=== PATIENT | male | born 1995 | race Caucasian/White ===

== ENCOUNTER 2021-04-23 15:37 | Emergency (ER) | payer OTHER ==
[~2021-04-23] VITALS: Ht 182.9 cm; Wt 117.9 kg
[2021-04-23] MEDS ORDERED: SODIUM CHLORIDE 0.9% 1,000 ML IV ONE (16:30)
[2021-04-23] MEDS ORDERED: ACETAMINOPHEN 500 MG TAB PO ONE (16:30)
[2021-04-23 17:04] LABS: Basophils # (auto) 0.1 10 ^3/uL (0-0.2); Basophils % (auto) 0.5 % (0.0-2.0); Eosinophils # (auto) 0.3 10 ^3/uL (0-0.8); Eosinophils % (auto) 2.1 % (0.0-7.0); Hematocrit 44.9 % (41.0-53.0); Hemoglobin 15.5 g/dL (13.5-17.5); Lymphocytes % (auto) 8.3 % (10.0-50.0); Mean Corpuscular Hemoglobin 29.7 pg (28.0-32.0); Mean Corpuscular Hgb Conc. 34.4 g/dL (32.0-36.0); Mean Corpuscular Volume 86.3 fL (80.0-100.0); Monocytes # (auto) 0.6 10 ^3/uL (0-1.3); Monocytes % (auto) 5.2 % (0.0-12.0); Neutrophils # (auto) 10.4 10 ^3/uL (1.6-8.6); Neutrophils % (auto) 83.9 % (37.0-80.0); Nucleated Red Blood Cells % 0.1 %; Red Cell Distribution Width 13.6 % (11.8-14.3); White Blood Cell 12.4 10^3/uL (4.4-10.8)
[2021-04-23 17:22] LABS: Albumin 3.7 g/dL (3.4-5.0); Calcium 8.6 mg/dL (8.5-10.1); Potassium 3.5 mmol/L (3.5-5.1)
[2021-04-23 17:28] LABS: Urine Bacteria NONE SEEN /hpf (None Seen); Urine Blood Negative /uL (Negative); Urine Mucus FEW (None Seen); Urine Specific Gravity 1.007 (1.001-1.035); Urine WBC <1 /hpf (0 - 3)
[2021-04-23 17:29] LABS: BUN/Creatinine Ratio 13.9; Bilirubin, Total 0.4 mg/dL (0.2-1.0); Total Protein 7.4 g/dL (6.4-8.2)
[2021-04-23] MEDS ORDERED: ALBUTEROL SULF 2.5 MG/0.5ML(0.5%) NEB SOLN NEB ONE (18:45)
[2021-04-23] MEDS ORDERED: methylPREDNISolone SOD SUCC 125 MG/2 ML VL IV ONE (18:45)
[2021-04-23] MEDS ORDERED: IPRATROPIUM BROM 0.5 MG/2.5ML INH SOL NEB ONE (18:45)
[2021-04-23] MEDS ORDERED: PRED20TA2 PO (21:43)
[2021-04-23] MEDS ORDERED: AZIT250T9 PO (21:43)
[2021-04-23] MEDS ORDERED: ALBUAER3 IN (21:43)
[2021-04-23 22:00] VITALS: BP 122/62
== END 2021-04-23 23:25 | disposition home or self-care (01) ==
LOC: ER 15:37
DX: J45.901 Unspecified asthma with (acute) exacerbation (principal); J20.9 Acute bronchitis, unspecified; F17.210 Nicotine dependence, cigarettes, uncomplicated; Z20.822 Contact with and (suspected) exposure to COVID-19
CPT/HCPCS: 36415; 71045; 80053; 81001; 83605; 83880; 84484; 85025; 87040; 87086; 87426; 93005; 94640; 96361; 96374; 99285; J2930; J7030; J7644

== ENCOUNTER 2021-04-24 02:57 | Inpatient (IN) | payer OTHER ==
[~2021-04-24] VITALS: Ht 182.9 cm; Wt 115.7 kg
[~2021-04-24 02:57] MED LIST: ALBUAER3 IN; AZIT250T9 PO; PRED20TA2 PO
[2021-04-24] MEDS ORDERED: ALBUTEROL SULF 2.5 MG/0.5ML(0.5%) NEB SOLN NEB ONE (03:15)
[2021-04-24] MEDS ORDERED: predniSONE 20 MG TAB PO ONE (03:15)
[2021-04-24] MEDS ORDERED: IPRATROPIUM BROM 0.5 MG/2.5ML INH SOL NEB ONE (03:15)
[2021-04-24 03:47] LABS: Basophils # (auto) 0 10 ^3/uL (0-0.2); Basophils % (auto) 0.2 % (0.0-2.0); Eosinophils # (auto) 0 10 ^3/uL (0-0.8); Hematocrit 46.2 % (41.0-53.0); Hemoglobin 15.8 g/dL (13.5-17.5); Lymphocytes # (auto) 0.6 10 ^3/uL (0.4-5.4); Lymphocytes % (auto) 4.1 % (10.0-50.0); Mean Corpuscular Hemoglobin 29.5 pg (28.0-32.0); Mean Corpuscular Hgb Conc. 34.3 g/dL (32.0-36.0); Monocytes # (auto) 0.2 10 ^3/uL (0-1.3); Monocytes % (auto) 1.2 % (0.0-12.0); Neutrophils # (auto) 13.6 10 ^3/uL (1.6-8.6); Neutrophils % (auto) 94.5 % (37.0-80.0); Red Blood Cells 5.38 10^6/uL (4.5-5.90); Red Cell Distribution Width 13.5 % (11.8-14.3); White Blood Cell 14.3 10^3/uL (4.4-10.8)
[2021-04-24 04:06] LABS: Albumin 3.8 g/dL (3.4-5.0); BUN/Creatinine Ratio 10.4; Calcium 9.1 mg/dL (8.5-10.1); Potassium 3.8 mmol/L (3.5-5.1)
[2021-04-24 04:13] LABS: Bilirubin, Total 0.4 mg/dL (0.2-1.0); Total Protein 8.2 g/dL (6.4-8.2)
[2021-04-24] MEDS ORDERED: cefTRIAXone SOD 1,000 MG VL IV ONE (05:00)
[2021-04-24] MEDS ORDERED: AZITHROMYCIN 250 MG TAB PO ONE ×2 (05:00→11:15)
[2021-04-24] MEDS ORDERED: IOHEXOL 350 MG/ML 100ML IJ ONE (05:06)
[2021-04-24] MEDS ORDERED: ONDANSETRON HCL 4 MG/2 ML VIAL IV PRN (06:45)
[2021-04-24] MEDS ORDERED: methylPREDNISolone SOD SUCC 125 MG/2 ML VL IV ONE (06:45)
[2021-04-24] MEDS ORDERED: IPRATROPIUM BROM 0.5 MG/2.5ML INH SOL NEB PRN (06:45)
[2021-04-24] MEDS ORDERED: FAMOTIDINE INJECTION 40 MG in SODIUM CHL 0.9% 100 ML IV ONE (06:45)
[2021-04-24] MEDS ORDERED: LORATADINE 10 MG TAB PO ONE (06:45)
[2021-04-24] MEDS ORDERED: MONTELUKAST SODIUM 10 MG TAB PO ONE (06:45)
[2021-04-24] MEDS ORDERED: ACETAMINOPHEN 325 MG TAB PO PRN (06:45)
[2021-04-24] MEDS ORDERED: ALBUTEROL SULF 2.5 MG/0.5ML(0.5%) NEB SOLN NEB PRN (06:45)
[2021-04-24 07:09] LABS: Amphetamine Screen, Urine NEGATIVE (NEGATIVE); Barbiturate Scree,Urine NEGATIVE (NEGATIVE); Benzodiazephine Screen, Urine NEGATIVE (NEGATIVE); Cannabinoid Screen, Urine NEGATIVE (NEGATIVE); Cocaine Screen, Urine NEGATIVE (NEGATIVE); Opiate Scree,Urine NEGATIVE (NEGATIVE); Phencyclidine Screen, Urine NEGATIVE (NEGATIVE)
[2021-04-24] MEDS ORDERED: SODIUM CHLORIDE 0.9% 1,000 ML IV ONE (07:15)
[2021-04-24] MEDS: MAGNESIUM SULFATE 1GM/100ML 100 ML IV SCH ×2 (07:38→08:27)
[2021-04-24] MEDS: SODIUM CHLORIDE 0.9% 1,000 ML IV SCH ×2 (07:38→15:08)
[2021-04-24 09:40] VITALS: BP 126/73
[2021-04-24 10:15] VITALS: BP 126/73
[2021-04-24] MEDS ORDERED: cefTRIAXone 1GM/50ML D5W 50 ML IV ONE (11:15)
[2021-04-24] MEDS: IPRATROPIUM BROM 0.5 MG/2.5ML INH SOL NEB SCH ×3 (11:57→23:51)
[2021-04-24] MEDS: ALBUTEROL SULF 2.5 MG/0.5ML(0.5%) NEB SOLN NEB SCH ×3 (11:58→23:51)
[2021-04-24] MEDS: LORATADINE 10 MG TAB PO SCH (12:21)
[2021-04-24] MEDS: ENOXAPARIN SOD 40 MG/0.4 ML SYRINGE SC SCH (12:21)
[2021-04-24] MEDS: methylPREDNISolone SOD SUCC 125 MG/2 ML VL IV SCH ×2 (14:57→20:58)
[2021-04-24 17:00] VITALS: BP 130/77
[2021-04-24 22:00] VITALS: BP 95/75
[2021-04-25] MEDS: SODIUM CHLORIDE 0.9% 1,000 ML IV SCH ×2 (02:29→07:45)
[2021-04-25] MEDS: methylPREDNISolone SOD SUCC 125 MG/2 ML VL IV SCH (05:10)
[2021-04-25 05:12] VITALS: BP 112/70
[2021-04-25 06:33] LABS: Basophils # (auto) 0 10 ^3/uL (0-0.2); Basophils % (auto) 0.1 % (0.0-2.0); Eosinophils # (auto) 0 10 ^3/uL (0-0.8); Hematocrit 40.3 % (41.0-53.0); Hemoglobin 13.8 g/dL (13.5-17.5); Lymphocytes % (auto) 6.6 % (10.0-50.0); Mean Corpuscular Hemoglobin 30.1 pg (28.0-32.0); Mean Corpuscular Hgb Conc. 34.3 g/dL (32.0-36.0); Mean Corpuscular Volume 87.8 fL (80.0-100.0); Monocytes # (auto) 0.5 10 ^3/uL (0-1.3); Monocytes % (auto) 3.6 % (0.0-12.0); Neutrophils # (auto) 13.9 10 ^3/uL (1.6-8.6); Neutrophils % (auto) 89.7 % (37.0-80.0); Nucleated Red Blood Cells % 0.1 %; Red Blood Cells 4.59 10^6/uL (4.5-5.90); Red Cell Distribution Width 13.9 % (11.8-14.3); White Blood Cell 15.5 10^3/uL (4.4-10.8)
[2021-04-25] MEDS: IPRATROPIUM BROM 0.5 MG/2.5ML INH SOL NEB SCH (06:48)
[2021-04-25] MEDS: ALBUTEROL SULF 2.5 MG/0.5ML(0.5%) NEB SOLN NEB SCH (06:48)
[2021-04-25 06:50] LABS: Albumin 3.1 g/dL (3.4-5.0); Calcium 8.6 mg/dL (8.5-10.1); Potassium 4.6 mmol/L (3.5-5.1)
[2021-04-25 06:53] LABS: BUN/Creatinine Ratio 16.7; Bilirubin, Total 0.2 mg/dL (0.2-1.0); Total Protein 6.9 g/dL (6.4-8.2)
[2021-04-25 08:00] VITALS: BP 121/76
[2021-04-25] MEDS ORDERED: ALBUAER3 IN (08:29)
[2021-04-25] MEDS ORDERED: METH4PAK PO (08:29)
[2021-04-25] MEDS ORDERED: AZIT500T66 PO (08:29)
[2021-04-25] MEDS ORDERED: cefTRIAXone 1GM/50ML D5W 50 ML IV SCH (09:00)
[2021-04-25] MEDS: LORATADINE 10 MG TAB PO SCH (09:30)
[2021-04-25] MEDS ORDERED: FAMOTIDINE 20 MG TAB PO SCH (10:00)
[2021-04-25] MEDS ORDERED: AZITHROMYCIN 250 MG TAB PO SCH (10:00)
[2021-04-25] MEDS: ENOXAPARIN SOD 40 MG/0.4 ML SYRINGE SC SCH (10:00)
[2021-04-25] MEDS ORDERED: MONTELUKAST SODIUM 10 MG TAB PO SCH (22:00)
== END 2021-04-25 13:00 | disposition home or self-care (01) | DRG 193 ==
LOC: ER 02:57 → TELE 06:39 → TELE-CENTR 09:12
PROVIDERS: ADMIT Internal Medicine; ATTEND Family Medicine
DX: J18.9 Pneumonia, unspecified organism (principal); J96.01 Acute respiratory failure with hypoxia; J45.901 Unspecified asthma with (acute) exacerbation; E66.9 Obesity, unspecified; F17.210 Nicotine dependence, cigarettes, uncomplicated; Z20.822 Contact with and (suspected) exposure to COVID-19; Z83.3 Family history of diabetes mellitus; Z68.34 Body mass index [BMI] 34.0-34.9, adult; Z71.6 Tobacco abuse counseling
CPT/HCPCS: 36415; 71275; 80053; 80307; 83880; 84484; 85025; 85379; 87040; 93005; 94640; 94644; 96365; 96375; G0378; J0696; J3490